=== PATIENT | male | born 1990 | race Caucasian/White ===

== ENCOUNTER 2021-03-25 22:59 | Emergency (ER) | payer OTHER, SELFPAY ==
[2021-03-25 22:59] VITALS: BP 161/93; PULSE 108; RESP 16; TEMP 36.6; O2SAT 97
--- NOTE | 2021-03-25 23:06 | RAD_ITS ---
STUDY: X-RAY - UNILATERAL RIBS ( LEFT ) WITH CHEST REASON FOR EXAM: Male, 31 years old. injury TECHNIQUE - RIBS: 4 view(s) of the ribs. TECHNIQUE - CHEST: PA chest. COMPARISON: None. FINDINGS - RIBS: Normal visualized ribs without a demonstrated fracture. FINDINGS - CHEST: The lungs are clear and expanded. There is no demonstrated pleural abnormality. Subcentimeter calcified nodule left lung apex. Normal size heart. Normal mediastinum and susana. Normal visualized pulmonary arteries. Normal visualized aortic arch and descending thoracic aorta. Normal visualized thoracic spine. Normal visualized ribs, clavicles, and shoulders. There is no demonstrated abnormality of the visualized soft tissue structures of the upper abdomen. RAD/Ribs Uni Min 3V w/PA Chest IMPRESSION: RIBS: Normal x-ray examination of the ribs. CHEST: No acute cardiopulmonary disease. Old granulomatous disease. Electronically Signed: Beto Read MD at 0:32 EDT , Service support ,
--- NOTE | 2021-03-25 23:07 | EDS_ITS ---
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 Complaining of pain to the left anterior lower ribs. Injury occurred about an hour prior to arrival. Patient states he went home took a shower then drove himself to the hospital. He has not taken anything for pain at this time. He denies lightheadedness or dizziness. He denies striking his head or having any neck pain. PFSH PFSH no medical history Home Medications hydrocodone-acetaminophen 1 tab PO Q6H PRN 3 Days #10 tab 03/26/21 [Rx Last Taken Unknown] Allergy/AdvReac Type Severity Reaction Status Date / Time amoxicillin Allergy Hives Verified 03/25/21 23:01 Social History Smoking Status: Former smoker ROS ROS ED Constitutional Constitutional ED: Denies chills or fever(s) Eyes Eyes: Denies change in vision ENT ENT ED: Denies sore throat Cardiovascular Cardiovascular: Reports chest pain and other Details: Left anterior lower ribs Respiratory/Chest Respiratory/Chest: Denies cough or dyspnea Gastrointestinal Gastrointestinal: Denies abdominal pain, diarrhea, nausea or vomiting Genitourinary Genitourinary ED: Denies dysuria Musculoskeletal Musculoskeletal: Denies back pain Integumentary Denies rash Neurologic Neurologic: Denies headache(s) or weakness Psychiatric Psychiatric: Denies anxiety or depression Endocrine Endocrinology: Denies polydipsia or polyuria Allergic/Immunologic Allergic/Immunologic ED: Denies urticaria EXAM Physical Exam Const Vital Signs: 03/25/21 22:59 03/25/21 23:21 Temperature 97.8 F Temperature Source Temporal Pulse Rate 108 H Respiratory Rate 16 Respiratory Effort Normal Respiratory Depth Normal Respiratory Pattern Normal Blood Pressure 161/93 H Blood Pressure Mean 115 Pulse Ox 97 Oxygen Delivery Method Room Air Positive well nourished and well developed General Appearance ED: well developed HEENT Reports normocephalic and head/scalp atraumatic Eyes PERRL and EOMs intact bilaterally Neck supple Chest Wall inspection of chest normal Chest Narrative: Tenderness location of the left anterior lower ribs. No overlying abrasions or ecchymosis at this time. Resp normal respiratory effort and clear to auscultation bilaterally Cardio regular rate and regular rhythm GI non-tender Palpation: soft Back/Spine no CVA tenderness Extremity normal to inspection Neuro oriented x3 and no sensory deficits noted Sensorium / Orientation: alert Motor Exam: strength 5/5 throughout Psych mental status grossly normal Skin no rashes or lesions noted MDM MDM MDM Narrative Medical decision making narrative: Patient did drive himself to the hospital. He was given naproxen here. Left rib series x-rays are obtained. Radiography Diagnostic Testing: Radiology Impression Ribs w/Chest X-Ray 03/25/21 23:06 IMPRESSION: RIBS: Normal x-ray examination of the ribs. CHEST: No acute cardiopulmonary disease. Old granulomatous disease. Electronically Signed: Beto Read MD at 0:32 EDT , Service support , Treatment and Re-Evaluation Comments:: On review of patient's x-rays I do not appreciate any obvious rib fractures. No evidence pneumothorax. Radiologist interpretation is also reviewed. Patient is given a prescription for [place] to help with pain control. He was instructed on the importance of deep breathing to prevent pneumonia. He is to follow-up with his PCP and was given return instructions if worsening. Discharge Plan Triage Chief Complaint: Fall ED Provider: Nadege Dale Dx/Rx/DC Orders Clinical Impression: Contusion of rib Instructions: ED Rib Contusion or Minor Fracture Prescriptions: New hydrocodone-acetaminophen 5-325 mg tablet 1 tab PO Q6H PRN (Reason: pain) 3 Days Qty: 10 RF: 0 Primary Care Provider: Care Physician,No Primary Referrals: Yany Hoskins MD [STAFF PHYSICIAN] - 1-2 Weeks Care Physician,No Primary [Primary Care Provider] - Disposition Disposition: Home, self care Discharge Date/Time: 03/26/21 01:02
[2021-03-25] MEDS: Naproxen 500 MG Tablet PO (23:20)
== END 2021-03-26 01:02 | disposition home or self-care (01) ==
PROVIDERS: Emergency Provider Emergency Medicine
DX: S20.219A Contusion of unspecified front wall of thorax, initial encounter (principal); W13.2XXA Fall from, out of or through roof, initial encounter; Z87.891 Personal history of nicotine dependence
CPT/HCPCS: 71101; 99283